=== PATIENT | female | born 1945 | race Caucasian/White ===

== ENCOUNTER → 2019-02-07 | Outpatient (CLI) | payer MEDICARE, SELFPAY | PROVIDERS: PCP Family Medicine Adolescent Medicine; Visit Provider Family Medicine Adolescent Medicine | DX: H91.13 Presbycusis, bilateral (principal) | CPT/HCPCS: 99199 ==

== ENCOUNTER 2020-02-04 13:58 | Outpatient (CLI) | payer MEDICARE, SELFPAY | END 2020-02-04 13:59 | disposition home or self-care (01) | PROVIDERS: PCP Family Medicine Adolescent Medicine; Visit Provider Family Medicine Adolescent Medicine | DX: H91.93 Unspecified hearing loss, bilateral (principal) | CPT/HCPCS: 92557; 92567 ==

== ENCOUNTER 2020-03-28 14:00 | Outpatient (RCR) | payer MEDICARE, SELFPAY | END 2020-03-28 23:59 | disposition home or self-care (01) | LOC: ANHAUDIO 14:00 | PROVIDERS: PCP Family Medicine Adolescent Medicine; Visit Provider Family Medicine Adolescent Medicine | DX: Z46.1 Encounter for fitting and adjustment of hearing aid (principal) | CPT/HCPCS: 99199; V5261 ==

== ENCOUNTER 2021-08-06 11:00 | Outpatient (RCR) | payer MEDICARE, SELFPAY | END 2021-08-27 23:59 | disposition home or self-care (01) | LOC: ANHAUDASC 11:00 | PROVIDERS: PCP Family Medicine Adolescent Medicine; Visit Provider Family Medicine Adolescent Medicine | DX: Z46.1 Encounter for fitting and adjustment of hearing aid (principal) | CPT/HCPCS: 99199 ==

== ENCOUNTER 2022-01-07 13:00 | Outpatient (RCR) | payer MEDICARE, SELFPAY | END 2022-02-17 23:59 | disposition home or self-care (01) | LOC: ANHAUDASC 13:00 | PROVIDERS: PCP Family Medicine Adolescent Medicine; Visit Provider Family Medicine Adolescent Medicine | DX: Z46.1 Encounter for fitting and adjustment of hearing aid (principal) | CPT/HCPCS: 99199 ==

== ENCOUNTER 2023-05-25 00:18 | Day surgery (SDC) | payer MEDICARE, SELFPAY ==
[2023-05-02 11:14] VITALS: BMI 28.3
--- NOTE | 2023-05-23 11:40 | SUR.PREOP ---
Patient called regarding upcoming procedure. Message left on pt's voicemail regarding appointment times.
[2023-05-25 08:53] VITALS: BP 162/78; PULSE 86; RESP 19; TEMP 36.4; O2SAT 97
[2023-05-25] MEDS: LACTATED RINGERS 1,000 ML 150 ML IV CONT (09:06)
--- NOTE | 2023-05-25 09:11 | WPDANESEPPF ---
Anes - Initial Pre Proc Eval Procedure: Operation Date: 05/25/23 10:00 Proposed Procedures p Screening Colonoscopy - Dontrell Iqbal MD Date/Time: 05/25/23 09:11 Surgeon: oDntrell Iqbal MD Pre Op Diagnosis: neoplasm screening Patient Data Age: 77 Gender: F Height: 1.5 m Weight: 61.1 kg Last Vital Signs Temp 97.5 F L 05/25/23 08:53 Pulse 86 05/25/23 08:53 Resp 19 05/25/23 08:53 BP 162/78 H 05/25/23 08:53 Pulse Ox 97 05/25/23 08:53 O2 Del Method Room Air 05/25/23 08:53 Allergies Allergy/AdvReac Type Severity Reaction Status Date / Time No Known Allergies Allergy Unknown Verified 05/25/23 08:52 Home Medications Medication Instructions Recorded Confirmed Type atorvastatin 20 mg tablet 20 mg PO DAILY #90 tabs 03/13/23 05/02/23 Rx propranolol 120 mg capsule,24 120 mg PO DAILY #90 caps 03/29/23 05/02/23 Rx hr,extended release escitalopram oxalate 10 mg tablet 10 mg PO DAILY #90 tabs 05/05/23 05/25/23 Rx Patient hx anesthesia problems: none Family hx anesthesia problems: none Results Review: All pre-operative results and documents have been reviewed as part of the pre-operative evaluation. [facility] Past Medical History Medical History (Updated 03/29/23 @ 11:53 by Con Aquino MD) History of trigger finger Surgery on rt hand Surgical History Surgical History (Updated 03/18/22 @ 16:02 by Nahomi Brantley MA) Hx of abdominoplasty Social History Social History Smoking packs per day: 1.5 Smoking cigarettes per day: 30.0 Years smoked: 50 Smoking pack-years: 75.00 Smoking status: Current every day smoker Tobacco type: cigarettes Alcohol intake: never Substance use: never Substance use type: does not use Living arrangements: with family Spiritual care concerns: No Anes - Eval Final PreProcedure Day of Procedure 05/25/23 09:11 Patient weight: normal Heart: regular rate and rhythm Lungs: clear to auscultation Airway: Mallampati scale class II Neurological: alert and oriented Last oral intake: >/= 8 hours ASA classification: III Emergent: no Anesthetic plan: proceed Anesthesia type and monitoring: general GIVS and standard monitoring Results Review: All pre-operative results and documents have been reviewed as part of the pre-operative evaluation. Informed Consent: The patient's anesthetic plan and its attendant risks and benefits were discussed with the patient/family/POA. Questions were solicited and answers provided to the satisfaction of the patient/family/POA.
--- NOTE | 2023-05-25 09:24 | PM.HPGS ---
History of Present Illness History of Present Illness Consent: Risks, benefits, and alternatives have been discussed and questions answered. Patient agrees to proceed with procedure. Chief complaint: neoplasm screening Narrative: Kendal Sanchez is a 77 year old female here for first screening colonoscopy Review of Systems Constitutional: Constitutional: Denies headache(s) and Denies weakness Eyes: Eyes: Denies blurry vision ENT: Reports Normal hearing present, Denies headache(s) and Denies neck pain Cardiovascular: Cardiovascular: Denies chest pain and Denies dyspnea Respiratory: Respiratory: Denies dyspnea Gastrointestinal: Gastrointestinal: Reports no additional gastrointestinal complaints Genitourinary: Genitourinary: Denies dysuria Musculoskeletal: Musculoskeletal: Denies neck pain Integumentary/Breasts: Skin/Breast: Denies dry skin Neurologic: Reports Normal hearing present, Denies headache(s) and Denies weakness Psychiatric: Psychiatric: Denies anxiety Endocrine: Endocrine: Denies change in body appearance Hematologic/Lymphatic: Hematologic/Lymphatic: Denies easy bleeding Allergic/Immunologic: Allergic/Immunologic: Denies urticaria [facility] Past Medical History Medical History (Updated 05/25/23 @ 09:25 by Dontrell Iqbal MD) Colon cancer screening History of trigger finger Surgery on rt hand Surgical History Surgical History (Updated 03/18/22 @ 16:02 by Nahomi Brantley MA) Hx of abdominoplasty Social History Social History Smoking packs per day: 1.5 Smoking cigarettes per day: 30.0 Years smoked: 50 Smoking pack-years: 75.00 Smoking status: Current every day smoker Tobacco type: cigarettes Alcohol intake: never Substance use: never Substance use type: does not use Living arrangements: with family Spiritual care concerns: No Meds Home Medications and Allergies Home Medications Medication Instructions Recorded Confirmed Type atorvastatin 20 mg tablet 20 mg PO DAILY #90 tabs 03/13/23 05/02/23 Rx propranolol 120 mg capsule,24 120 mg PO DAILY #90 caps 03/29/23 05/02/23 Rx hr,extended release escitalopram oxalate 10 mg tablet 10 mg PO DAILY #90 tabs 05/05/23 05/25/23 Rx Allergies Allergy/AdvReac Type Severity Reaction Status Date / Time No Known Allergies Allergy Unknown Verified 05/25/23 08:52 Vital Signs Vital Signs - 24 hr 05/25/23 08:53 Temperature 97.5 F L Pulse Rate 86 Respiratory Rate 19 Blood Pressure 162/78 H Pulse Oximetry 97 Oxygen Delivery Room Air Exam Const: General: comfortable and no acute distress HENMT: Face/Nose/Sinus: Normal nares present Eyes: General: appearance normal, both eyes and all related structures Neck: Neck: no JVD Resp: Auscultation: clear to auscultation bilaterally Cardio: Rate: regular rate Rhythm: regular rhythm GI: Inspection: non-distended GI Palp: Yes Soft to palpation Skin: General skin exam: normal color Neuro: General: gait normal Speech: normal speech Extrem: General: normal to inspection Psych: Mental Status: mental status grossly normal Assessment and Plan Assessment and plan (1) Colon cancer screening: Code(s): Z12.11 - Encounter for screening for malignant neoplasm of colon Status: Acute Assessment and Plan: colonoscopy
[2023-05-25 09:53] VITALS: BP 128/55; PULSE 61; RESP 20; O2SAT 100
[2023-05-25 10:03] VITALS: BP 155/71; PULSE 70; RESP 15; O2SAT 97
[2023-05-25 10:13] VITALS: BP 161/68; PULSE 63; RESP 15; O2SAT 100
== END 2023-05-25 10:30 | disposition home or self-care (01) ==
PROVIDERS: PCP Family Medicine Adolescent Medicine; Visit Provider Internal Medicine Gastroenterology
PROC: 0DJD8ZZ Inspection of Lower Intestinal Tract, Via Natural or Artificial Opening Endoscopic (ICD-10-PCS; CPT 45378; principal; 2023-05-25 10:00)
DX: Z12.11 Encounter for screening for malignant neoplasm of colon (principal); D12.2 Benign neoplasm of ascending colon; D12.3 Benign neoplasm of transverse colon; D12.4 Benign neoplasm of descending colon; K64.8 Other hemorrhoids; F17.210 Nicotine dependence, cigarettes, uncomplicated; Z98.890 Other specified postprocedural states
CPT/HCPCS: 45385; 88305; J2704; J7120